=== PATIENT | male | born 1975 | race Caucasian/White ===

== ENCOUNTER 2020-04-11 15:54 | Observation (INO) | payer BC, OTHER ==
[2020-04-11] MEDS ORDERED: morphine CARPU-JECT 4 MG/1 ML DISP.SYRIN IVPUSH ONE ×2 (16:17→18:18)
--- NOTE | 2020-04-11 16:24 | PDOC ---
History of Present Illness - General Chief Complaint: Syncope/Near Syncope Stated Complaint: LFT ARM INJURY Time Seen by Provider: 04/11/20 16:20 History Source: Patient Exam Limitations: No Limitations - History of Present Illness Initial Comments: 04/11/20 16:52 45y previously healthy M presenting w L bicep pain and deformity s/p syncope. This afternoon, pt remembers playing basketball outdoors and running upcourt when losing consciousness. Had 2 similar syncopes within last 2 years, never evaluated by PCP or hospital. Plays basketball 4x/week outdoors. Dad had DE in his 50s. Has small abrasions over forehead and extremities from cat scratches. Denies fever, headache, vision change, chest/ABD pain, SOB, urinary/bowel mvmt changes. Past History - Medical History Allergies/Adverse Reactions: Allergies Allergy/AdvReac Type Severity Reaction Status Date / Time No Known Allergies Allergy Unverified 04/11/20 16:12 Home Medications: Ambulatory Orders Clonazepam [Klonopin] 1 mg PO PRN 04/11/20 COPD: No - Psycho-Social/Smoking History Smoking History: Never smoked Have you smoked in the past 12 months: No Information on smoking cessation initiated: No - Substance Abuse Hx (Audit-C & DAST Scrn) How often the patient has a drink containing alcohol: Never Score: In Men: 4 or > Positive; In Women: 3 or > Positive: 0 Screen Result (Pos requires Nsg. Audit-10AR): Negative In the last yr the pt used illegal drug/Rx for NonMed reason: No Score: Yes response is considered Positive: 0 Screen Result (Positive result requires Nsg. DAST-10): Negative Review of Systems - Review of Systems Constitutional: No: Chills, Fever HEENTM: No: Eye Pain, Nose Congestion Respiratory: No: Cough, SOB at Rest Cardiac (ROS): Yes: Syncope. No: Chest Pain, Palpitations ABD/GI: No: Constipated, Diarrhea, Nausea, Vomiting : No: Burning, Dysuria Musculoskeletal: No: Back Pain, Joint Pain Integumentary: No: Bruising, Flushing Neurological: No: Headache, Seizure Psychiatric: No: Anxiety, Depression Endocrine: No: Intolerance to Cold, Intolerance to Heat Hematologic/Lymphatic: No: Anemia, Blood Clots *Physical Exam - Vital Signs Last Vital Signs Temp Pulse Resp BP Pulse Ox 98.8 F 95 H 17 159/115 H 100 04/11/20 16:09 04/11/20 16:09 04/11/20 16:04/11/20 16:09 04/11/20 16:09 - Physical Exam General Appearance: Yes: Nourished, Appropriately Dressed, Moderate Distress HEENT: positive: EOMI, NBA, Normal Voice, Hearing Grossly Normal, Other (no blood oropharynx/external pinna). negative: Scleral Icterus (R), Scleral Icterus (L) Neck: positive: Supple. negative: Tender, Rigid, Decreased range of motion (full ROM) Respiratory/Chest: positive: Lungs Clear, Normal Breath Sounds. negative: Chest Tender, Respiratory Distress, Crackles, Rales, Rhonchi, Stridor, Wheezing Cardiovascular: positive: Regular Rhythm, Regular Rate, S1, S2. negative: Edema, Murmur Comments:: 2+ radial pulses [place] Gastrointestinal/Abdominal: positive: Normal Bowel Sounds, Flat, Soft. nega tive: Tender, Organomegaly Extremity: positive: Delayed Capillary Refill, Other (L arm - shoulder extension limited d/t pain, ubaldo deformity, intact thumbs up/finger-5th digit/lumbrical strength) Integumentary: positive: Normal Color, Dry, Warm, Other (small abrasions L forehead, extremities). 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 negative: Numbness, Sensory Deficit, Confused, Disoriented ED Treatment Course - LABORATORY CBC & Chemistry Diagram: 04/11/20 16:30 04/11/20 16:30 Medical Decision Making - Medical Decision Making 04/11/20 16:42 EKG - NSR, HR 80, QTc 405, no ST changes Chest/L humerus XR - no fx/dislocation, clear lung peterson, normal cardiac size CT head - no acute bleed/infarct/mass/fx --- 45y previously healthy M presenting w L bicep pain and deformity s/p syncope. Orthostatic vs cardiac syncope. Low concern for ACS (neg trop, NSR EKG) vs vasovagal (no prodrome) Also has L proximal bicep tendon rupture. L arm neurovascular intact. No fx/dislocation on XR, no acute pathology on CTH Given 8 morphine, 1L LR. Placed L arm in sling Consulted ortho Dr Ulloa/Tadeo - place in sling, will evaluate tmrw Admit tele hospitalist for syncope, L proximal biceps tendon rupture No PCP Discharge - Discharge Information Problems reviewed: Yes Clinical Impression/Diagnosis: Syncope Qualifiers: Syncope type: unspecified Qualified Code(s): R55 - Syncope and collapse Rupture of biceps tendon Qualifiers: Encounter type: initial encounter Laterality: left Qualified Code(s): S46.212A - Strain of muscle, fascia and tendon of other parts of biceps, left arm, initial encounter Condition: Improved - Follow up/Referral - Patient Discharge Instructions - Post Discharge Activity
[2020-04-11] MEDS ORDERED: MORPHINE SULFATE 2 MG/ML VIAL ONE ×2 (16:38→22:24)
[2020-04-11] MEDS ORDERED: LACTATED RINGERS SOLUTION 1000 ML INFUS.BAG IV ONE (16:39)
--- NOTE | 2020-04-11 17:10 | PDOC ---
Documentation entered by Kassi Barrera SCRIBE, acting as scribe for Linda Arguello MD. Linda Arguello MD: This documentation has been prepared by the laurenceibeHolly Sydney, SCRIBE, under my direction and personally reviewed by me in its entirety. I confirm that the documentation accurately reflects all work, treatment, procedures, and medical decision making performed by me. Attending Attestation - Resident Resident Name: Nathan Zavala - ED Attending Attestation I have performed the following: I have examined & evaluated the patient, The case was reviewed & discussed with the resident, I agree w/resident's findings & plan, Exceptions are as noted - HPI HPI: 04/11/20 17:09 45 yo M p/w syncopal episode occurred today while running on the basketball court this afternoon. Denies any prodromal symptoms. States he had been playing basketball for about 15 minutes prior to the event. +FH AR in father in his mid 50's. States he has had 2 similar episodes of syncope over the past few years but never sought medical care. Also complaining of L arm pain since the fall. No other injuries or complaints. Patient is R hand dominant. - Physicial Exam PE: General: well appearing Chest: CTAB, good air entry, no wheezes rales or rhonchi CVS: + s1 s2, RRR Extremities: + ubaldo deformity of LUE, sensation intact to light touch, +ttp L shoulder, +radial pulses - Medical Decision Making 04/11/20 17:27 45 yo M here s/p syncopal event, concern for cardiac etiology however lower suspicion for ACS as EKG without ischemic changes. Also with findings concerning for biceps tendon rupture. Plan: -labs -cxr -CT head -xray L humerus -pain control as needed -ortho consult -admit tele obs This clinical encounter is taking place during a federal and state health care emergency attributable to the novel [place]tega Virus pandemic. The [place] of the Department of Health and Human Services has declared, pursuant to the Public Health Service Act 319F-3 (42 U.S.C. 247d-6d), that a covered persons activities related to medical countermeasures against COVID-19 will be immune from liability under Federal and State law. Discharge - Discharge Information Problems reviewed: Yes Clinical Impression/Diagnosis: Syncope Qualifiers: Syncope type: unspecified Qualified Code(s): R55 - Syncope and collapse Rupture of biceps tendon Qualifiers: Encounter type: initial encounter Laterality: left Qualified Code(s): S46.212A - Strain of muscle, fascia and tendon of other parts of biceps, left arm, initial encounter Condition: Improved - Follow up/Referral - Patient Discharge Instructions - Post Discharge Activity
[2020-04-11 17:11] LABS: BASO % 0.7 % (0-2.0); EOS % 1.8 % (0-4.5); HEMATOCRIT 43.8 % (35.4-49); HEMOGLOBIN 14.7 GM/dL (11.7-16.9); LYMPH % 13.8 % (8-40); MCH 29.3 pg (25.7-33.7); MCHC 33.5 g/dl (32.0-35.9); MEAN CELL VOLUME 87.4 fl (80-96); MEAN PLT VOLUME 8.8 fl (7.5-11.1); MONO % 8.6 % (3.8-10.2); NEUT % 75.1 % (42.8-82.8); PLATELET COUNT 246 K/MM3 (134-434); RBC 5.01 M/mm3 (4.00-5.60); WHITE BLOOD COUNT 7.1 K/mm3 (4.0-10.0)
[2020-04-11 17:26] LABS: INR 0.92 (0.83-1.09); PROTHROMBIN TIME (PATIENT) 10.9 SEC (9.7-13.0)
[2020-04-11 17:29] LABS: ACTIVATED PTT 30.2 SECONDS (25.2-36.5)
[2020-04-11 17:46] LABS: ALBUMIN 4.1 g/dl (3.4-5.0); ALK PHOS 63 U/L (45-117); ANION GAP 10 MMOL/L (8-16); BILIRUBIN,TOTAL 0.6 mg/dL (0.2-1); BLOOD UREA NITROGEN 16.8 mg/dL (7-18); CALCIUM 9.6 mg/dL (8.5-10.1); CHLORIDE 107 mmol/L (98-107); CO2 24 mmol/L (21-32); CREATININE 0.8 mg/dL (0.55-1.3); GLUCOSE,RANDOM 92 mg/dL (74-106); MAGNESIUM 2.2 mg/dL (1.8-2.4); N-TERMINAL BNP 38.4 pg/ml (5-125); POTASSIUM 4.2 mmol/L (3.5-5.1); SGOT/AST 15 U/L (15-37); SGPT/ALT 19 U/L (13-61); SODIUM 141 mmol/L (136-145); TOT PROT 7.3 g/dl (6.4-8.2)
[2020-04-11] MEDS ORDERED: morphine SULFATE 4 MG/ML VIAL ONE (18:24)
--- NOTE | 2020-04-11 21:26 | HP ---
<Ade Aldridge - Last Filed: 04/11/20 22:54> CHIEF COMPLAINT: Sudden loss of consciousness and Left arm pain x pain PCP: None HISTORY OF PRESENT ILLNESS: Patient is 45 yo M with a 1 day hx of witnessed sudden LOC and fall with trauma to the left side of his head and left shoulder. This is the 3rd episode in 18months with each lasting 30secs and associated with exercise. No associated sweating, chest pain, SOB, nausea, vomiting, diarrhea, constipation, light headedness, seizure, pre syncope aura, visual or auditory impairment or confusion. No recent hx of insomnia, alcohol, opiod, benzo or other illicit drug use use. Patient ate and was well hydrated before exercise. No hx of cardiac or repiratory illness. There is a significant FHx of syncope 2x in his father. Left shoulder pain is x1 day, started after he fell down during the syncope. It was sudden, is sharp, radiates to the left arm, worsen by movement of affected limb and relieved by resting the affected limb, severity of 9/10. No associated numbness, weakness or pallor. 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 HEAD: Normocephalic with mild tenderness in left temporal side EYES: Pupils equal, round and reactive to light, extraocular movements intact, sclera anicteric, conjunctiva clear. No lid lag. Fundoscopy: No intraretinal hemorrhage seen EARS, NOSE, THROAT: Ears normal, nares patent, oropharynx clear without exudates. Moist mucous membranes. NECK: Normal range of motion, supple without lymphadenopathy, JVD, or masses. LUNGS: vesicular breath sounds heard b/l. No wheezes, and no crackles. No accessory muscle use. HEART: Regular rate and rhythm, normal S1 and S2 without murmur, rub or gallop. Orthostatic vitals=negative: BP on suppine 154/94, sitting 156/91 ABDOMEN: Soft, nontender, not distended, normoactive bowel sounds, no guarding, no rebound, no masses. No hepatomegaly or splenomegaly. MUSCULOSKELETAL: Normal range of motion at all joints. No tenderness. No CVA tenderness. UPPER EXTREMITIES: 2+ pulses, warm, well-perfused. No cyanosis. No peripheral edema, no numbness, no pallor. Motor 1/1 on SALO, sensation 2/2 on SALO. SALO = 5/5 motor and 2/2 sensation LOWER EXTREMITIES: 2+ pulses, warm, well-perfused. No calf tenderness. No peripheral edema. NEUROLOGICAL: Cranial nerves II-XII intact. Normal speech. Motor was 1/1 on SALO and 5/5 on all other limbs, sensation was 2/2 on all limbs PSYCHIATRIC: Cooperative. Good eye contact. Appropriate mood and affect. SKIN: Warm, dry, normal turgor, normal capillary refill. Laboratory Results - last 24 hr 04/11/20 04/11/20 04/11/20 16:30 16:30 16:30 WBC 7.1 RBC 5.01 Hgb 14.7 Hct 43.8 MCV 87.4 MCH 29.3 MCHC 33.5 RDW 14.0 Plt Count 246 MPV 8.8 Absolute Neuts (auto) 5.3 Neutrophils % 75.1 Lymphocytes % 13.8 Monocytes % 8.6 Eosinophils % 1.8 Basophils % 0.7 Nucleated RBC % 1 H PT with INR 10.90 INR 0.92 PTT (Actin FS) 30.2 Sodium 141 Potassium 4.2 Chloride 107 Carbon Dioxide 24 Anion Gap 10 BUN 16.8 Creatinine 0.8 Est GFR (CKD-EPI)AfAm 123.29 Est GFR (CKD-EPI)NonAf 106.38 Random Glucose 92 Calcium 9.6 Magnesium 2.2 Total Bilirubin 0.6 AST 15 ALT 19 Alkaline Phosphatase 63 Creatine Kinase 120 Troponin I < 0.02 B-Natriuretic Peptide 38.4 Total Protein 7.3 Albumin 4.1 ASSESSMENT/PLAN: # Exercise Induced syncope Likely due to inherited conduction abnormality even though current EKG is not supportive Hx of 2 episodes of syncope in his father when walking 3 episodes of exercise induced syncope Admit to telemetry unit for observation Echocardiography R/O valvular EEG then consult neuro TSH Carotid doppler MgSO4, PO4 Morphine for breakthrough pain Ibuprofen # Ruptured Biceps Tendon: Jorge's deformitysz Hx of fall and trauma to SALO ATTENDING PHYSICIAN STATEMENT I saw and evaluated the patient. I reviewed the resident's note and discussed the case with the resident. I agree with the resident's findings and plan as documented. SUBJECTIVE: OBJECTIVE: ASSESSMENT AND PLAN: <Nadya Flores - Last Filed: 04/12/20 00:26> CHIEF COMPLAINT: PCP: HISTORY OF PRESENT ILLNESS: ER course was notable for: (1) (2) (3) Recent Travel: PAST MEDICAL HISTORY: PAST SURGICAL HISTORY: Social History: Smoking: Alcohol: Drugs: Allergies No Known Allergies Allergy (Unverified 04/11/20 16:12) HOME MEDICATIONS: Home Medications Medication Instructions Recorded Clonazepam [Klonopin] 1 mg PO PRN 04/11/20 REVIEW OF SYSTEMS CONSTITUTIONAL: Absent: fever, chills, diaphoresis, generalized weakness, malaise, loss of appetite, weight change HEENT: Absent: rhinorrhea, nasal congestion, throat pain, throat swelling, difficulty swallowing, mouth swelling, ear pain, eye pain, visual changes CARDIOVASCULAR: Absent: chest pain, syncope, palpitations, irregular heart rate, lightheadedness, peripheral edema RESPIRATORY: Absent: cough, shortness of breath, dyspnea with exertion, orthopnea, wheezing, stridor, hemoptysis GASTROINTESTINAL: Absent: abdominal pain, abdominal distension, nausea, vomiting, diarrhea, constipation, melena, hematochezia GENITOURINARY: Absent: dysuria, frequency, urgency, hesitancy, hematuria, flank pain, genital pain MUSCULOSKELETAL: Absent: myalgia, arthralgia, joint swelling, back pain, neck pain SKIN: Absent: rash, itching, pallor HEMATOLOGIC/IMMUNOLOGIC: Absent: easy bleeding, easy bruising, lymphadenopathy, frequent infections ENDOCRINE: Absent: unexplained weight gain, unexplained weight loss, heat intolerance, cold intolerance NEUROLOGIC: Absent: headache, focal weakness or paresthesias, dizziness, unsteady gait, seizure, mental status changes, bladder or bowel incontinence PSYCHIATRIC: Absent: anxiety, depression, suicidal or homicidal ideation, hallucinations. PHYSICAL EXAMINATION Vital Signs - 24 hr 04/11/20 04/11/20 04/11/20 16:09 17:02 19:41 Temperature 98.8 F 98.9 F Pulse Rate 95 H Pulse Rate [ 83 64 Apical] Respiratory 17 18 17 Rate Blood Pressure 159/115 H Blood Pressure 142/89 135/78 [Right Arm] O2 Sat by Pulse 100 100 98 Oximetry (%) GENERAL: Awake, alert, and fully oriented, in no acute distress. HEAD: Normal with no signs of trauma. EYES: Pupils equal, round and reactive to light, extraocular movements intact, sclera anicteric, conjunctiva clear. No lid lag. EARS, NOSE, THROAT: Ears normal, nares patent, oropharynx clear without exudates. Moist mucous membranes. NECK: Normal range of motion, supple without lymphadenopathy, JVD, or masses. LUNGS: Breath sounds equal, clear to auscultation bilaterally. No wheezes, and no crackles. No accessory muscle use. HEART: Regular rate and rhythm, normal S1 and S2 without murmur, rub or gallop. ABDOMEN: Soft, nontender, not distended, normoactive bowel sounds, no guarding, no rebound, no masses. No hepatomegaly or splenomegaly. MUSCULOSKELETAL: Normal range of motion at all joints. No bony deformities or tenderness. No CVA tenderness. UPPER EXTREMITIES: 2+ pulses, warm, well-perfused. No cyanosis. No clubbing. No peripheral edema. LOWER EXTREMITIES: 2+ pulses, warm, well-perfused. No calf tenderness. No peripheral edema. NEUROLOGICAL: Cranial nerves II-XII intact. Normal speech. Normal gait. PSYCHIATRIC: Cooperative. Good eye contact. Appropriate mood and affect. SKIN: Warm, dry, normal turgor, no rashes or lesions noted, normal capillary refill. Laboratory Results - last 24 hr 04/11/20 04/11/20 04/11/20 16:30 16:30 16:30 WBC 7.1 RBC 5.01 Hgb 14.7 Hct 43.8 MCV 87.4 MCH 29.3 MCHC 33.5 RDW 14.0 Plt Count 246 MPV 8.8 Absolute Neuts (auto) 5.3 Neutrophils % 75.1 Lymphocytes % 13.8 Monocytes % 8.6 Eosinophils % 1.8 Basophils % 0.7 Nucleated RBC % 1 H PT with INR 10.90 INR 0.92 PTT (Actin FS) 30.2 Sodium 141 Potassium 4.2 Chloride 107 Carbon Dioxide 24 Anion Gap 10 BUN 16.8 Creatinine 0.8 Est GFR (CKD-EPI)AfAm 123.29 Est GFR (CKD-EPI)NonAf 106.38 Random Glucose 92 Calcium 9.6 Magnesium 2.2 Total Bilirubin 0.6 AST 15 ALT 19 Alkaline Phosphatase 63 Creatine Kinase 120 Troponin I < 0.02 B-Natriuretic Peptide 38.4 Total Protein 7.3 Albumin 4.1 ASSESSMENT/PLAN: Visit type - Emergency Visit Emergency Visit: Yes ED Registration Date: 04/11/20 Care time: The patient presented to the Emergency Department on the above date and was hospitalized for further evaluation of their emergent condition. - New Patient This patient is new to me today: Yes Date on this admission: 04/12/20 - Critical Care Critical Care patient: No ATTENDING PHYSICIAN STATEMENT I saw and evaluated the patient. I reviewed the resident's note and discussed the case with the resident. I agree with the resident's findings and plan as documented. SUBJECTIVE: OBJECTIVE: DOS April 11 2020 ASSESSMENT AND PLAN: 45 year old male with syncope of unclear etiology # Agree with work-up structural cardiac causes vs arrythmia ? Excercise induced - telemetry monitoring - TSH / EEG - neuro consult in AM
[2020-04-11] MEDS ORDERED: MORPHINE SULFATE 2 MG/ML VIAL IVPUSH PRN ×2 (21:31→22:37)
[2020-04-11] MEDS ORDERED: IBUPROFEN 400 MG TABLET (FP) PO PRN (21:31)
[2020-04-11] MEDS ORDERED: ENOXAPARIN NA (PORCINE) 40 MG/0.4 ML DISP.SYRIN SQ ONE (22:24)
[2020-04-11] MEDS: ENOXAPARIN NA (PORCINE) 40 MG/0.4 ML DISP.SYRIN SQ SCH (22:26)
[2020-04-11] MEDS ORDERED: HYDROmorphone HCL 5 MG/5 ML CUP PO PRN (22:36)
[2020-04-11] MEDS ORDERED: ACETAMINOPHEN 325 MG TABLET (FP) PO PRN ×2 (22:38→22:43)
[2020-04-11] MEDS ORDERED: oxyCODONE HCL 5 MG TABLET PO PRN (22:45)
--- NOTE | 2020-04-12 07:41 | PN ---
Physical Exam: Patient Name: LEO WOOD Date of : 71 Patient Status: Inpatient Attending Provider: Sara Bedolla Date: 04/11/20 21:26 Initialization Date: 04/11/20 21:26 CHIEF COMPLAINT: Sudden loss of consciousness and Left arm pain x 1day PCP: None HISTORY OF PRESENT ILLNESS: Patient is 45 yo M with a 1 day hx of witnessed sudden LOC and fall with trauma to the left side of his head and left shoulder. This is the 3rd episode in 18months with each lasting 30secs and associated with exercise. No associated sweating, chest pain, SOB, nausea, vomiting, diarrhea, constipation, light headedness, seizure, pre syncope aura, visual or auditory impairment or confusion. No recent hx of insomnia, alcohol, opiod, benzo or other illicit drug use use. Patient ate and was well hydrated before exercise. No hx of cardiac or repiratory illness. There is a significant FHx of syncope 2x in his father. Left shoulder pain is x1 day, started after he fell down during the syncope. It was sudden, is sharp, radiates to the left arm, worsen by movement of affected limb and relieved by resting the affected limb, severity of 9/10. No associated numbness, weakness or pallor. 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 HEAD: Tenderness on Lt. temporal side of head EYES: Fundoscopy: No intra retinal hemorrhages. PERRL, sclera anicteric, conjunctiva clear. No ptosis. ENT: Ears normal, nares patent, oropharynx clear without blood or mucous membranes. NECK: Trachea midline, full range of motion, supple. LUNGS: Breath sounds equal, clear to auscultation bilaterally, no wheezes, no crackles, no accessory muscle use. HEART: Regular rate and rhythm, S1, S2 without murmur, rub or gallop. ABDOMEN: Soft, nontender, nondistended, normoactive bowel sounds, no guarding, no rebound, no hepatosplenomegaly, no masses. EXTREMITIES: 2+ pulses, warm, well-perfused, no edema. NEUROLOGICAL: Cranial nerves II through XII grossly intact. Normal speech PSYCH: Normal mood, normal affect. SKIN: Warm SALO EXAM: Obvious ubaldo's deformity, sensation 2/2 b/l, motor is 3/5 on affected limb and 5/5 on all other limbs Laboratory Results - last 24 hr 04/11/20 04/11/20 04/11/20 16:30 16:30 16:30 WBC 7.1 RBC 5.01 Hgb 14.7 Hct 43.8 MCV 87.4 MCH 29.3 MCHC 33.5 RDW 14.0 Plt Count 246 MPV 8.8 Absolute Neuts (auto) 5.3 Neutrophils % 75.1 Lymphocytes % 13.8 Monocytes % 8.6 Eosinophils % 1.8 Basophils % 0.7 Nucleated RBC % 1 H PT with INR 10.90 INR 0.92 PTT (Actin FS) 30.2 Sodium 141 Potassium 4.2 Chloride 107 Carbon Dioxide 24 Anion Gap 10 BUN 16.8 Creatinine 0.8 Est GFR (CKD-EPI)AfAm 123.29 Est GFR (CKD-EPI)NonAf 106.38 Random Glucose 92 Calcium 9.6 Magnesium 2.2 Total Bilirubin 0.6 AST 15 ALT 19 Alkaline Phosphatase 63 Creatine Kinase 120 Troponin I < 0.02 B-Natriuretic Peptide 38.4 Total Protein 7.3 Albumin 4.1 Active Medications Generic Name Dose Route Start Last Admin Trade Name Freq PRN Reason Stop Dose Admin Acetaminophen 325 mg 04/11/20 22:38 Tylenol - PO Q6H PRN Fever Or Pain Acetaminophen 325 mg 04/11/20 22:45 Tylenol - PO Q6H PRN PAIN LEVEL 4 - 6 Acetaminophen 650 mg 04/11/20 22:43 Tylenol - PO Q6H PRN PAIN LEVEL 1-5 Enoxaparin Sodium 40 mg 04/11/20 20:30 04/11/20 22:26 Lovenox - SQ 40 mg DAILY AMANDA Administration Morphine Sulfate 1 mg 04/11/20 22:37 Morphine Sulfate IVPUSH Q4H PRN PAIN LEVEL 7 - 10 Oxycodone HCl 5 mg 04/11/20 22:45 Roxicodone - PO Q6H PRN PAIN LEVEL 4 - 6 ASSESSMENT/PLAN: Patient is 45 yo M with a 1 day hx of witnessed sudden LOC and fall with trauma to the left side of his head and left shoulder. Exercise Induced Syncope due to dehydration vs arrhythmia vs congenital QT syndrome Hx of syncope x 2 in 18 months LOC Event always related to exercise FHx of suncope FHx of arrhythmias in his father Admit telemetry NPO for now Echo cardiography and consult senior portfolio analyst Fall, seizure and aspiration precautions to be observed Encourage early ambulation LEFT ARM INJURY: Recent hx of fall Ubaldo's deformity of affected arm Associated pain 9/10 Lt arm sling Morphine 4mg IV QH4 for pain scale 7-10 Acetaminophen 650mg PO Q6H for pain 1-5 and fever Xray of affected limb. Consult orthopedics # DISPOSITION DVT prophylaxis: levonox 40mg SQ daily Visit type - Emergency Visit Emergency Visit: Yes ED Registration Date: 04/11/20 Care time: The patient presented to the Emergency Department on the above date and was hospitalized for further evaluation of their emergent condition. - New Patient This patient is new to me today: Yes Date on this admission: 04/11/20 - Critical Care Critical Care patient: No ATTENDING PHYSICIAN STATEMENT I saw and evaluated the patient. I reviewed the resident's note and discussed the case with the resident. I agree with the resident's findings and plan as documented. SUBJECTIVE: OBJECTIVE: ASSESSMENT AND PLAN:
--- NOTE | 2020-04-12 08:37 | CON.ORTH ---
Consult Reason for Consultation:: left biceps tendon rupture - Smoking History Smoking history: Never smoked Have you smoked in the past 12 months: No Home Medications - Allergies Allergies/Adverse Reactions: Allergies Allergy/AdvReac Type Severity Reaction Status Date / Time No Known Allergies Allergy Unverified 04/11/20 16:12 - Home Medications Home Medications: Ambulatory Orders Clonazepam [Klonopin] 1 mg PO PRN 04/11/20 Physical Exam for Ortho Vital Signs: Vital Signs Temperature 97.8 F 04/12/20 06:09 Pulse Rate 66 04/12/20 06:09 Respiratory Rate 16 04/12/20 06:09 Blood Pressure 141/88 04/12/20 06:09 O2 Sat by Pulse Oximetry (%) 98 04/12/20 06:09 Labs: CBC, BMP 04/11/20 16:30 04/11/20 16:30 INR, PTT INR 0.92 (0.83-1.09) 04/11/20 16:30 - Upper Extremity Elbow: Yes: Left, Deformity, Pain, Swelling, Tenderness, Other (+ ubaldo deformity, + ttp, ff 90, er 20, nvi) Imaging - Results X-ray: Report Reviewed, Image Reviewed Assessment/Plan 45 yo M with a 1 day hx of witnessed sudden LOC and fall with trauma to the left side of his head and left shoulder. This is the 3rd episode in 18months with each lasting 30secs and associated with exercise. No associated sweating, chest pain, SOB, nausea, vomiting, diarrhea, constipation, light headedness, seizure, pre syncope aura, visual or auditory impairment or confusion. No recent hx of insomnia, alcohol, opiod, benzo or other illicit drug use use. Patient ate and was well hydrated before exercise. No hx of cardiac or repiratory illness. There is a significant FHx of syncope 2x in his father. Left shoulder pain is x1 day, started after he fell down during the syncope. It was sudden, is sharp, radiates to the left arm, worsen by movement of affected limb and relieved by re sting the affected limb, severity of 9/10. No associated numbness, weakness or pallor. a/p left proximal biceps tendon rupture Risks and benefits regarding surgical vs conservative treatment were d/w in detail treatment can done as outpt sling for comfort encouraged ROM pain control f/u in the office next week d/w Dr. Piedra
[2020-04-12] MEDS ORDERED: oxyCODONE HCL 5 MG TABLET PO PRN ×2 (09:09→14:05)
[2020-04-12] MEDS ORDERED: KETOROLAC TROMETHAMINE 30 MG/1 ML VIAL IVPUSH PRN (09:10)
[2020-04-12] MEDS ORDERED: ENOXAPARIN NA (PORCINE) 40 MG/0.4 ML DISP.SYRIN SQ ONE (10:00)
[2020-04-12] MEDS ORDERED: LIDOCAINE 5% TOPICAL PATCH ONE (10:00)
[2020-04-12] MEDS: ENOXAPARIN NA (PORCINE) 40 MG/0.4 ML DISP.SYRIN SQ SCH (10:07)
[2020-04-12] MEDS: LIDOCAINE 5% TOPICAL PATCH TP SCH (10:07)
[2020-04-12] MEDS ORDERED: KETOROLAC TROMETHAMINE 30 MG/1 ML VIAL ONE (10:09)
--- NOTE | 2020-04-12 10:55 | CON.NEURO ---
Consult - Smoking History Smoking history: Never smoked Have you smoked in the past 12 months: No Home Medications - Allergies Allergies/Adverse Reactions: Allergies Allergy/AdvReac Type Severity Reaction Status Date / Time No Known Allergies Allergy Unverified 04/11/20 16:12 - Home Medications Home Medications: Ambulatory Orders Clonazepam [Klonopin] 1 mg PO PRN 04/11/20 Physical Exam-Neuro Vital Signs: Vital Signs Temperature 97.8 F 04/12/20 06:09 Pulse Rate 66 04/12/20 06:09 Respiratory Rate 16 04/12/20 06:09 Blood Pressure 141/88 04/12/20 06:09 O2 Sat by Pulse Oximetry (%) 98 04/12/20 06:09 Labs: CBC, BMP 04/11/20 16:30 04/11/20 16:30 INR, PTT INR 0.92 (0.83-1.09) 04/11/20 16:30 Assessment/Plan cc Syncopal episode 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 It was very brief event, lasting few second. There was no seizure like activity, no incontinence, no tongue bite. Cipriano has similar event in psat. He was seen by orthopedic for tendon rupture. Patient has no history of seizure, no head injury, fever or cancer. He do no ttake any medication. 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 Plan: cardiac work up - eeg - no evidence of tia or seizure Thanking you so much Bran Benavidez MD
[2020-04-12] MEDS ORDERED: oxyCODONE HCL 5 MG TABLET ONE (10:56)
--- NOTE | 2020-04-12 12:17 | EKG ---
Test Reason : Blood Pressure : / mmHG Vent. Rate : 080 BPM Atrial Rate : 080 BPM P-R Int : 130 ms QRS Dur : 086 ms QT Int : 352 ms P-R-T Axes : 062 067 043 degrees QTc Int : 405 ms NORMAL SINUS RHYTHM POSSIBLE LEFT ATRIAL ENLARGEMENT BORDERLINE ECG NO PREVIOUS ECGS AVAILABLE Confirmed by JARROD KWONG, VANESSA ([id number]) on 04/12/2020 12:17:51 PM Referred By: Confirmed By:VANESSA GARAY MD
--- NOTE | 2020-04-12 12:23 | PN ---
Physical Exam: SUBJECTIVE: Patient seen and examined in the ER holding area. Pt denies dizziness, SOB, chest pain, c/o L shoulder pain. OBJECTIVE: This is a 45 y.o. male with no past medical history who presented to the ED after a syncopal episode while he was playing basketball. Pt states he was about 15 minutes into the game when he suddenly passed out, he denies prodromal symptoms such as nausea, vomiting, dizziness, lightheadedness. Pt reports he lost conscious for about 30 seconds as per witnesses. Pt states he has had 2 prior episodes of syncope during physical exertion, but did not seek medical care at that time. Pt denies recent illnesses, SOB, dyspnea, chest pain, fever chills, headache, lightheadedness, dizziness. Pt states his father had an NV in his 50s, but no history of sudden cardiac deaths in his family. Pt also reports falling on his left side injuring his left arm. Seen by ortho - most likely left biceps tendon rupture On director zone Vital Signs Period Temp Pulse Resp BP Sys/Gudino Pulse Ox Last 24 Hr 97.5 F-98.9 F 64-95 16-18 135-159/78-115 97-100 GENERAL: The patient is awake, alert, and fully oriented, in no acute distress. HEAD: Normal with no signs of trauma. EYES: PERRL, extraocular movements intact, sclera anicteric, conjunctiva clear. No ptosis. ENT: Ears normal, nares patent, oropharynx clear without exudates, moist mucous membranes. NECK: Trachea midline, full range of motion, supple. LUNGS: Breath sounds equal, clear to auscultation bilaterally, no wheezes, no crackles, no accessory muscle use. HEART: Regular rate and rhythm, S1, S2 without murmur, rub or gallop. ABDOMEN: Soft, nontender, nondistended, normoactive bowel sounds, no guarding, no rebound, no hepatosplenomegaly, no masses. EXTREMITIES: left arm in sling, +left upper extremity tenderness, 2+ pulses, warm, well-perfused, no edema. NEUROLOGICAL: Cranial nerves II through XII grossly intact. Sensation to left upper extremity intact, Normal speech, gait not observed. PSYCH: Normal mood, normal affect. SKIN: Warm, dry, normal turgor, no rashes or lesions noted Laboratory Results - last 24 hr 04/11/20 04/11/20 04/11/20 16:30 16:30 16:30 WBC 7.1 RBC 5.01 Hgb 14.7 Hct 43.8 MCV 87.4 MCH 29.3 MCHC 33.5 RDW 14.0 Plt Count 246 MPV 8.8 Absolute Neuts (auto) 5.3 Neutrophils % 75.1 Lymphocytes % 13.8 Monocytes % 8.6 Eosinophils % 1.8 Basophils % 0.7 Nucleated RBC % 1 H PT with INR 10.90 INR 0.92 PTT (Actin FS) 30.2 Sodium 141 Potassium 4.2 Chloride 107 Carbon Dioxide 24 Anion Gap 10 BUN 16.8 Creatinine 0.8 Est GFR (CKD-EPI)AfAm 123.29 Est GFR (CKD-EPI)NonAf 106.38 Random Glucose 92 Calcium 9.6 Magnesium 2.2 Total Bilirubin 0.6 AST 15 ALT 19 Alkaline Phosphatase 63 Creatine Kinase 120 Troponin I < 0.02 B-Natriuretic Peptide 38.4 Total Protein 7.3 Albumin 4.1 COVID-19 (DICLIA) 04/11/20 16:40 WBC RBC Hgb Hct MCV MCH MCHC RDW Plt Count MPV Absolute Neuts (auto) Neutrophils % Lymphocytes % Monocytes % Eosinophils % Basophils % Nucleated RBC % PT with INR INR PTT (Actin FS) Sodium Potassium Chloride Carbon Dioxide Anion Gap BUN Creatinine Est GFR (CKD-EPI)AfAm Est GFR (CKD-EPI)NonAf Random Glucose Calcium Magnesium Total Bilirubin AST ALT Alkaline Phosphatase Creatine Kinase Troponin I B-Natriuretic Peptide Total Protein Albumin COVID-19 (DILCIA) Not detected Active Medications Generic Name Dose Route Start Last Admin Trade Name Freq PRN Reason Stop Dose Admin Acetaminophen 325 mg 04/11/20 22:45 Tylenol - PO Q6H PRN PAIN LEVEL 4 - 6 Acetaminophen 650 mg 04/11/20 22:43 Tylenol - PO Q6H PRN PAIN LEVEL 1-3 Enoxaparin Sodium 40 mg 04/11/20 20:30 04/12/20 10:07 Lovenox - SQ 40 mg DAILY AMANDA Administration Ketorolac Tromethamine 30 mg 04/12/20 09:10 04/12/20 10:08 Toradol Injection - IVPUSH 04/17/20 09:09 30 mg Q6H PRN Administration PAIN LEVEL 7-10 Lidocaine 1 patch 04/12/20 10:00 04/12/20 10:07 Lidoderm Patch - TP 1 patch DAILY AMANDA Administration Miscellaneous 1 each 04/12/20 22:00 Lidoderm Patch Removal MC DAILY@2200 [facility] Oxycodone HCl 5 mg 04/11/20 22:45 04/12/20 11:02 Roxicodone - PO 5 mg Q6H PRN Administration PAIN LEVEL 4 - 6 ASSESSMENT/PLAN: Problem List - Problems (1) Left upper arm pain Assessment/Plan: oxycodone and toradol PRN lidocaine patch Code(s): M79.622 - PAIN IN LEFT UPPER ARM (2) Rupture of biceps tendon Assessment/Plan: left biceps tendon rupture seen by ortho humerus xray done follow up with left arm MRI f/u outpt for possible surgery vs conservative treatment maintain arm in sling pain control Code(s): S46.219A - STRAIN OF MUSC/FASC/TEND PRT BICEPS, UNSP ARM, INIT Qualifiers: Encounter type: initial encounter Laterality: left Qualified Code(s): S46.212A - Strain of muscle, fascia and tendon of other parts of biceps, left arm, initial encounter (3) Syncope Assessment/Plan: EKG done - nsr trops neg chest xray done - neg carotid doppler u/s done - no stenosis head ct done - neg cardiology following echo done this morning will need stress test - ordered for friday 04/13 seen by neurology - unlikely seizures/TIA Code(s): R55 - SYNCOPE AND COLLAPSE Qualifiers: Syncope type: unspecified Qualified Code(s): R55 - Syncope and collapse (4) Encounter for other specified prophylactic measures Assessment/Plan: VTE prophylaxis - on lovenox 40mg subq daily OOB as tolerated FEN start low sodium diet Code(s): Z29.8 - ENCOUNTER FOR OTHER SPECIFIED PROPHYLACTIC MEASURES Visit type - Emergency Visit Emergency Visit: Yes ED Registration Date: 04/11/20 Care time: The patient presented to the Emergency Department on the above date and was hospitalized for further evaluation of their emergent condition. - New Patient This patient is new to me today: Yes Date on this admission: 04/12/20 - Critical Care Critical Care patient: No - Discharge Referral Referred to [facility] Med P.C.: No
--- NOTE | 2020-04-12 12:25 | CON.CARD ---
Cardiology Consult (text) - Consultation Consultation Note: cc: syncope hpi: 45 m no sig pmhx here with syncope. Yesterday was playing basketball and while running he had loc and fell. Had loc for about 30 seconds and felt fine when awoke. No prodrome sxs, he reports eating and drinking well while playing basketball. No cp sob palps dizzy pnd orthopnea le edema. Had similar episode about 18 mos ago when playing basketball and one other episode while jogging some time before that. Never had a cardio w/u for these episodes. pmh: per hpi psh: none social: no tob fam: dad mi and pci 50s. no scd. ros: per hpi; all others nl meds: Home Medications Medication Instructions Recorded Clonazepam [Klonopin] 1 mg PO PRN 04/11/20 pe: Vital Signs Period Temp Pulse Resp BP Sys/Gudino Pulse Ox Last 24 Hr 97.5 F-98.9 F 64-95 16-18 135-159/78-115 97-100 nad no jvd rrr s1s2 no mrg cta bl nl eff aao3 no le e/c/c abd nt nd pos bs no jaundice diaphoresis pos dp pt no carotid bruits Laboratory Last Values WBC 7.1 K/mm3 (4.0-10.0) 04/11/20 16:30 RBC 5.01 M/mm3 (4.00-5.60) 04/11/20 16:30 Hgb 14.7 GM/dL (11.7-16.9) 04/11/20 16:30 Hct 43.8 % (35.4-49) 04/11/20 16:30 MCV 87.4 fl (80-96) 04/11/20 16:30 MCH 29.3 pg (25.7-33.7) 04/11/20 16:30 MCHC 33.5 g/dl (32.0-35.9) 04/11/20 16:30 RDW 14.0 % (11.9-15.9) 04/11/20 16:30 Plt Count 246 K/MM3 (134-434) 04/11/20 16:30 MPV 8.8 fl (7.5-11.1) 04/11/20 16:30 Absolute Neuts (auto) 5.3 K/mm3 (1.5-8.0) 04/11/20 16:30 Neutrophils % 75.1 % (42.8-82.8) 04/11/20 16:30 Lymphocytes % 13.8 % (8-40) 04/11/20 16:30 Monocytes % 8.6 % (3.8-10.2) 04/11/20 16:30 Eosinophils % 1.8 % (0-4.5) 04/11/20 16:30 Basophils % 0.7 % (0-2.0) 04/11/20 16:30 Nucleated RBC % 1 % (0-0) H 04/11/20 16:30 PT with INR 10.90 SEC (9.7-13.0) 04/11/20 16:30 INR 0.92 (0.83-1.09) 04/11/20 16:30 PTT (Actin FS) 30.2 SECONDS (25.2-36.5) 04/11/20 16:30 Sodium 141 mmol/L (136-145) 04/11/20 16:30 Potassium 4.2 mmol/L (3.5-5.1) 04/11/20 16:30 Chloride 107 mmol/L (98-107) 04/11/20 16:30 Carbon Dioxide 24 mmol/L (21-32) 04/11/20 16:30 Anion Gap 10 MMOL/L (8-16) 04/11/20 16:30 BUN 16.8 mg/dL (7-18) 04/11/20 16:30 Creatinine 0.8 mg/dL (0.55-1.3) 04/11/20 16:30 Est GFR (CKD-EPI)AfAm 123.29 04/11/20 16:30 Est GFR (CKD-EPI)NonAf 106.38 04/11/20 16:30 Random Glucose 92 mg/dL (74-106) 04/11/20 16:30 Calcium 9.6 mg/dL (8.5-10.1) 04/11/20 16:30 Magnesium 2.2 mg/dL (1.8-2.4) 04/11/20 16:30 Total Bilirubin 0.6 mg/dL (0.2-1) 04/11/20 16:30 AST 15 U/L (15-37) 04/11/20 16:30 ALT 19 U/L (13-61) 04/11/20 16:30 Alkaline Phosphatase 63 U/L (45-117) 04/11/20 16:30 Creatine Kinase 120 U/L (26-308) 04/11/20 16:30 Troponin I < 0.02 ng/ml (0.00-0.05) 04/11/20 16:30 B-Natriuretic Peptide 38.4 pg/ml (5-125) 04/11/20 16:30 Total Protein 7.3 g/dl (6.4-8.2) 04/11/20 16:30 Albumin 4.1 g/dl (3.4-5.0) 04/11/20 16:30 COVID-19 (DILCIA) Not detected (Not Detected) 04/11/20 16:40 ecg: wnl tele: sr cxr: clear carotids 04/2020: no sig stenosis a/p: 45 m no sig pmhx here with syncope. syncope: -several episodes years apart while running. No signs chf, acs. ECG wnl. Carotids w/o stenosis. -will check echo to look for cardiomyopathy. cont tele. Will also check stress test for underlying ischemia. -neuro eval in progress as well
[2020-04-12 13:03] VITALS: BMI 24.0
[2020-04-12] MEDS ORDERED: oxyCODONE HCL 5 MG TABLET PO ONE (13:17)
[2020-04-12] MEDS: ACETAMINOPHEN 325 MG TABLET (FP) PO PRN (13:22)
--- NOTE | 2020-04-12 16:55 | ECHO ---
Name: NINALEO NICHOLE Exam:Adult Echocardiogram Study Date: 04/12/2020 09:09 AM Age: 45 yrs Reason For Study: Evaluate LV Function MMode/2D Measurements & Calculations IVSd: 0.95 cm Ao root diam: 3.0 cm LVIDd: 4.1 cm LA dimension: 3.1 cm LVIDs: 2.9 cm LVPWd: 1.5 cm LVPWs: 1.9 cm EDV(Teich): 75.9 ml ESV(Teich): 31.5 ml LVOT diam: 2.1 cm RV S Kristofer: 11.2 cm/sec Doppler Measurements & Calculations MV E max kristofer: 82.4 cm/sec Ao V2 max: 115.1 cm/sec MV A max kristofer: 57.3 cm/sec Ao max P.3 mmHg MV E/A: 1.4 GREGG(V,D): 2.8 cm2 MV dec time: 0.13 sec LV V1 max P.7 mmHg MR max kristofer: 427.8 cm/sec LV V1 max: 95.8 cm/sec MR max P.2 mmHg TR max kristofer: 82.5 cm/sec PA V2 max: 104.5 cm/sec TR max P.7 mmHg PA max P.4 mmHg PI end-d kristofer: 88.2 cm/sec Med Peak E' Kristofer: 7.3 cm/sec Med E/e': 11.2 Lat Peak E' Kristofer: 6.9 cm/sec Lat E/e': 11.9 Procedure A complete two-dimensional transthoracic echocardiogram was performed (2D, M-mode, Doppler and color flow Doppler). Left Ventricle The left ventricular size, thickness and function are normal. Ejection Fraction = 55-60%. The left ve ntricular wall motion is normal. Right Ventricle The right ventricle is normal in size and function. Atria Normal left and right atrial size and function. Mitral Valve There is trace mitral regurgitation. Tricuspid Valve No tricuspid regurgitation. There was insufficient TR detected to calculate RV systolic pressure. Aortic Valve No hemodynamically significant valvular aortic stenosis. No aortic regurgitation is present. Pulmonic Valve There is no pulmonic valvular regurgitation. Great Vessels The aortic root is normal size. Pericardium/Pleura There is no pericardial effusion. Interpretation Summary The left ventricular size, thickness and function are normal The right ventricle is normal in size and function. There is trace mitral regurgitation. MD Keegan Mijares 04/12/2020 04:55 PM
[2020-04-12] MEDS: POLYETHYLENE GLYCOL 3350 119 GM BTL PO SCH (17:35)
[2020-04-12] MEDS: oxyCODONE HCL 5 MG TABLET PO PRN ×2 (18:45→23:59)
[2020-04-12] MEDS: DOCUSATE SODIUM 100 MG CAPSULE (FP) PO SCH (21:39)
[2020-04-13 02:06] LABS: ALBUMIN 3.9 g/dl (3.4-5.0); ALK PHOS 58 U/L (45-117); ANION GAP 7 MMOL/L (8-16); BILIRUBIN,TOTAL 0.9 mg/dL (0.2-1); BLOOD UREA NITROGEN 16.2 mg/dL (7-18); CHLORIDE 106 mmol/L (98-107); CO2 27 mmol/L (21-32); CREATININE 0.8 mg/dL (0.55-1.3); GLUCOSE,RANDOM 80 mg/dL (74-106); MAGNESIUM 2.3 mg/dL (1.8-2.4); PHOSPHOROUS 3.3 mg/dL (2.5-4.9); POTASSIUM 4.5 mmol/L (3.5-5.1); SGOT/AST 17 U/L (15-37); SGPT/ALT 17 U/L (13-61); SODIUM 140 mmol/L (136-145); TOT PROT 6.8 g/dl (6.4-8.2)
[2020-04-13] MEDS: LIDOCAINE PATCH REMOVAL MC SCH ×2 (02:14→22:40)
[2020-04-13] MEDS: DOCUSATE SODIUM 100 MG CAPSULE (FP) PO SCH ×3 (05:59→21:15)
[2020-04-13] MEDS: oxyCODONE HCL 5 MG TABLET PO PRN ×2 (05:59→20:11)
[2020-04-13] MEDS: ACETAMINOPHEN 325 MG TABLET (FP) PO PRN ×3 (06:00→20:12)
--- NOTE | 2020-04-13 06:13 | PN ---
Progress Note, Physician Chief Complaint: denies CP, SOB, palps Tele: NSR - Current Medication List Current Medications: Active Medications Acetaminophen (Tylenol -) 325 mg PO Q6H PRN PRN Reason: PAIN LEVEL 7-10 Last Admin: 04/13/20 06:00 Dose: 325 mg Documented by: Acetaminophen (Tylenol -) 650 mg PO Q6H PRN PRN Reason: PAIN LEVEL 1-3 Last Admin: 04/12/20 18:46 Dose: 650 mg Documented by: Docusate Sodium (Colace -) 100 mg PO TID [facility] Last Admin: 04/13/20 05:59 Dose: 100 mg Documented by: Enoxaparin Sodium (Lovenox -) 40 mg SQ DAILY [facility] Last Admin: 04/12/20 10:07 Dose: 40 mg Documented by: Ketorolac Tromethamine (Toradol Injection -) 30 mg IVPUSH Q6H PRN PRN Reason: PAIN LEVEL 7-10 Stop: 04/17/20 09:09 Last Admin: 04/12/20 10:08 Dose: 30 mg Documented by: Lidocaine (Lidoderm Patch -) 1 patch TP DAILY [facility] Last Admin: 04/12/20 10:07 Dose: 1 patch Documented by: Miscellaneous (Lidoderm Patch Removal) 1 each MC DAILY@2200 [facility] Last Admin: 04/13/20 02:14 Dose: Not Given Documented by: Oxycodone HCl (Roxicodone -) 10 mg PO Q4H PRN PRN Reason: PAIN LEVEL 7 - 10 Last Admin: 04/13/20 05:59 Dose: 10 mg Documented by: Oxycodone HCl (Roxicodone -) 5 mg PO Q4H PRN PRN Reason: PAIN LEVEL 4 - 6 Polyethylene Glycol (Miralax (For Daily Use) -) 17 gm PO DAILY [facility] Last Admin: 04/12/20 17:35 Dose: Not Given Documented by: - Objective Vital Signs: Vital Signs Temperature 97.8 F 04/13/20 02:00 Pulse Rate 121 H 04/13/20 02:00 Respiratory Rate 20 04/13/20 02:00 Blood Pressure 149/98 04/13/20 02:00 O2 Sat by Pulse Oximetry (%) 98 04/12/20 12:28 Constitutional: Yes: No Distress, Calm Eyes: Yes: Conjunctiva Clear Cardiovascular: Yes: Regular Rate and Rhythm Respiratory: Yes: CTA Bilaterally Gastrointestinal: Yes: Soft (nt) Edema: No Neurological: Yes: Alert, Oriented Labs: CBC, BMP 04/11/20 16:30 04/12/20 13:02 INR, PTT INR 0.92 (0.83-1.09) 04/11/20 16:30 - ....Imaging EKG: Image Reviewed Assessment/Plan ecg: wnl tele: sr cxr: clear carotids 04/2020: no sig stenosis a/p: 45 m no sig pmhx here with syncope. syncope: -several episodes years apart while running. No signs chf, acs. ECG wnl. Carotids w/o stenosis. -Normal echo - cont tele - Will also check stress test for underlying ischemia. -neuro input reviewed -If no etiology can be determined, recommend outpt f/u for loop recorder discussion
[2020-04-13 09:14] LABS: BASO % 0.8 % (0-2.0); EOS % 2.6 % (0-4.5); HEMATOCRIT 40.2 % (35.4-49); HEMOGLOBIN 13.6 GM/dL (11.7-16.9); LYMPH % 32.5 % (8-40); MCH 29.2 pg (25.7-33.7); MCHC 33.9 g/dl (32.0-35.9); MEAN CELL VOLUME 86.1 fl (80-96); MEAN PLT VOLUME 8.1 fl (7.5-11.1); MONO % 9.4 % (3.8-10.2); NEUT % 54.7 % (42.8-82.8); PLATELET COUNT 198 K/MM3 (134-434); RBC 4.66 M/mm3 (4.00-5.60); RDW 13.6 % (11.9-15.9); WHITE BLOOD COUNT 4.1 K/mm3 (4.0-10.0)
[2020-04-13 09:52] LABS: ALBUMIN 3.6 g/dl (3.4-5.0); BLOOD UREA NITROGEN 17.3 mg/dL (7-18); CALCIUM 8.7 mg/dL (8.5-10.1); CREATININE 0.9 mg/dL (0.55-1.3); MAGNESIUM 2.3 mg/dL (1.8-2.4); POTASSIUM 3.6 mmol/L (3.5-5.1); TOT PROT 6.3 g/dl (6.4-8.2)
[2020-04-13] MEDS ORDERED: REGADENOSON 0.4 MG/5 ML PRE-FILLED SYRINGE IVPUSH ONE ×2 (10:00→12:47)
[2020-04-13] MEDS ORDERED: clonazePAM 0.5 MG TABLET PO PRN (10:04)
--- NOTE | 2020-04-13 13:38 | PN ---
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 It was very brief event, lasting few second. There was no seizure like activity, no incontinence, no tongue bite. Cipriano has similar event in psat. He was seen by orthopedic for tendon rupture. Patient has no history of seizure, no head injury, fever or cancer. He do no ttake any medication. chart reviewed and no new complain NEUROLOGICAL EXAMINATION Alert oriented x 3, neck is supple , vss EOMI, PUPILS REACTIVE no face asymmetry moving all ext sensation i snormal , ct head i sunremarkable eeg pending Assessment/Plan Syncope, no other medical problem, neuro exam is unremarkable. Plan: cardiac work up - eeg pending - no evidence of tia or seizure Thanking you so much Bran Benavidez MD
[2020-04-13] MEDS: LIDOCAINE 5% TOPICAL PATCH TP SCH (14:47)
[2020-04-13] MEDS: ENOXAPARIN NA (PORCINE) 40 MG/0.4 ML DISP.SYRIN SQ SCH (14:47)
[2020-04-13] MEDS: POLYETHYLENE GLYCOL 3350 119 GM BTL PO SCH (14:48)
[2020-04-13] MEDS ORDERED: MORPHINE SULFATE 2 MG/ML VIAL IVPUSH ONE (15:30)
--- NOTE | 2020-04-13 15:50 | PN ---
Physical Exam: SUBJECTIVE: Patient seen and examined at the bedside after stress test. Pain of left arm severe today. OBJECTIVE: This is a 45 y.o. male with no past medical history who presented to the ED after a syncopal episode while he was playing basketball. Pt states he was about 15 minutes into the game when he suddenly passed out, he denies prodromal symptoms such as nausea, vomiting, dizziness, lightheadedness. Pt reports he lost conscious for about 30 seconds as per witnesses. Pt states he has had 2 prior episodes of syncope during physical exertion, but did not seek medical care at that time. Pt denies recent illnesses, SOB, dyspnea, chest pain, fever chills, headache, lightheadedness, dizziness. Pt states his father had an MD in his 50s, but no history of sudden cardiac deaths in his family. Pt also reports falling on his left side injuring his left arm and found to have a tendon tear. He was seen by orthopedics. Seen by ortho - most likely left biceps tendon rupture stress test 04/13/2020: mild anterior and lateral wall ischemia. borderline transient ischemic dilatation with TID ratio 1.19, EF 51% covid test: negative as of 04/11/2020 Vital Signs Period Temp Pulse Resp BP Sys/Gudino Pulse Ox Last 24 Hr 97.3 F-98.2 F 62-121 20-20 132-149/73-98 97-97 GENERAL: The patient is awake, alert, and fully oriented, in no acute distress, having pain of left arm. HEAD: Normal with no signs of trauma. EYES: PERRL, extraocular movements intact, sclera anicteric, conjunctiva clear. No ptosis. ENT: Ears normal, nares patent, oropharynx clear without exudates, moist mucous membranes. NECK: Trachea midline, full range of motion, supple. LUNGS: Breath sounds equal, clear to auscultation bilaterally, no wheezes, no crackles, no accessory muscle use. HEART: Regular rate and rhythm ABDOMEN: Soft, nontender, nondistended, normoactive bowel sounds, no guarding, no rebound, no hepatosplenomegaly, no masses. EXTREMITIES: left arm in sling, +left upper extremity tenderness, 2+ pulses, warm, well-perfused, no edema. NEUROLOGICAL: Sensation to left upper extremity intact, Normal speech, gait not observed. PSYCH: Normal mood, normal affect. SKIN: Warm, dry, normal turgor, no rashes or lesions noted Laboratory Results - last 24 hr 04/12/20 04/13/20 04/13/20 13:02 08:40 08:40 WBC 4.1 RBC 4.66 Hgb 13.6 Hct 40.2 MCV 86.1 MCH 29.2 MCHC 33.9 RDW 13.6 Plt Count 198 MPV 8.1 Absolute Neuts (auto) 2.3 Neutrophils % 54.7 D Lymphocytes % 32.5 D Monocytes % 9.4 Eosinophils % 2.6 Basophils % 0.8 Nucleated RBC % 0 Sodium 140 140 Potassium 4.5 3.6 Chloride 106 108 H Carbon Dioxide 27 26 Anion Gap 7 L 6 L BUN 16.2 17.3 Creatinine 0.8 0.9 Est GFR (CKD-EPI)AfAm 123.29 117.47 Est GFR (CKD-EPI)NonAf 106.38 101.35 Random Glucose 80 85 Calcium 9.0 8.7 Phosphorus 3.3 Magnesium 2.3 2.3 Total Bilirubin 0.9 1.0 AST 17 11 L ALT 17 15 Alkaline Phosphatase 58 53 Creatine Kinase 68 Troponin I < 0.02 Total Protein 6.8 6.3 L Albumin 3.9 3.6 TSH 0.18 L 0.71 D Free T4 1.10 Active Medications Generic Name Dose Route Start Last Admin Trade Name Freq PRN Reason Stop Dose Admin Acetaminophen 325 mg 04/11/20 22:45 04/13/20 14:49 Tylenol - PO 325 mg Q6H PRN Administration PAIN LEVEL 7-10 Acetaminophen 650 mg 04/11/20 22:43 04/12/20 18:46 Tylenol - PO 650 mg Q6H PRN Administration PAIN LEVEL 1-3 Clonazepam 1 mg 04/13/20 10:04 Klonopin - PO BID PRN ANXIETY Docusate Sodium 100 mg 04/12/20 22:00 04/13/20 14:48 Colace - PO 100 mg TID AMANDA Administration Enoxaparin Sodium 40 mg 04/11/20 20:30 04/13/20 14:47 Lovenox - SQ 40 mg DAILY AMANDA Administration Ketorolac Tromethamine 30 mg 04/12/20 09:10 04/12/20 10:08 Toradol Injection - IVPUSH 04/17/20 09:09 30 mg Q6H PRN Administration PAIN LEVEL 7-10 Lidocaine 1 patch 04/12/20 10:00 04/13/20 14:47 Lidoderm Patch - TP 1 patch DAILY AMANDA Administration Miscellaneous 1 each 04/12/20 22:00 04/13/20 02:14 Lidoderm Patch Removal MC Not Given DAILY@2200 AMANDA Oxycodone HCl 10 mg 04/12/20 14:04 04/13/20 05:59 Roxicodone - PO 10 mg Q4H PRN Administration PAIN LEVEL 7 - 10 Oxycodone HCl 5 mg 04/12/20 14:05 04/13/20 14:48 Roxicodone - PO 5 mg Q4H PRN Administration PAIN LEVEL 4 - 6 Polyethylene Glycol 17 gm 04/12/20 14:15 04/13/20 14:48 Miralax (For Daily Use) - PO Not Given DAILY AMANDA ASSESSMENT/PLAN: Problem List - Problems (1) Abnormal stress test Assessment/Plan: further recommendations per cardiology stress test 04/13/2020: mild anterior and lateral wall ischemia. borderline transient ischemic dilatation with TID ratio 1.19, EF 51% Code(s): R94.39 - ABNORMAL RESULT OF OTHER CARDIOVASCULAR FUNCTION STUDY (2) Left upper arm pain Assessment/Plan: oxycodone and toradol PRN but arm pain severe today after stress test. will give one additional dose of morphine 2mg ivpush to better control the pain. Code(s): M79.622 - PAIN IN LEFT UPPER ARM (3) Rupture of biceps tendon Assessment/Plan: left biceps tendon rupture seen by ortho humerus xray done follow up with left arm MRI f/u outpt for possible surgery vs conservative treatment maintain arm in sling pain control Code(s): S46.219A - STRAIN OF MUSC/FASC/TEND PRT BICEPS, UNSP ARM, INIT Qualifiers: Encounter type: initial encounter Laterality: left Qualified Code(s): S46.212A - Strain of muscle, fascia and tendon of other parts of biceps, left ar m, initial encounter (4) Syncope Assessment/Plan: EKG done - nsr trops neg chest xray done - neg carotid doppler u/s done - no stenosis head ct done - neg cardiology following echo done stress test was abnormal. await cardiology recommendations seen by neurology - unlikely seizures/TIA Code(s): R55 - SYNCOPE AND COLLAPSE Qualifiers: Syncope type: unspecified Qualified Code(s): R55 - Syncope and collapse (5) Encounter for other specified prophylactic measures Assessment/Plan: VTE prophylaxis - on lovenox 40mg subq daily OOB as tolerated FEN start low sodium diet Code(s): Z29.8 - ENCOUNTER FOR OTHER SPECIFIED PROPHYLACTIC MEASURES (6) DVT prophylaxis Assessment/Plan: lovenox 40mg daily Code(s): Z29.9 - ENCOUNTER FOR PROPHYLACTIC MEASURES, UNSPECIFIED Visit type - Emergency Visit Emergency Visit: Yes ED Registration Date: 04/11/20 Care time: The patient presented to the Emergency Department on the above date and was hospitalized for further evaluation of their emergent condition. - New Patient This patient is new to me today: No - Critical Care Critical Care patient: No - Discharge Referral Referred to [facility] Med P.C.: No
[2020-04-13] MEDS ORDERED: MORPHINE SULFATE 2 MG/ML VIAL IVPUSH PRN (17:15)
[2020-04-14] MEDS: oxyCODONE HCL 5 MG TABLET PO PRN ×2 (01:36→08:32)
[2020-04-14] MEDS: DOCUSATE SODIUM 100 MG CAPSULE (FP) PO SCH (05:33)
[2020-04-14] MEDS: ACETAMINOPHEN 325 MG TABLET (FP) PO PRN (08:33)
[2020-04-14 09:30] VITALS: BP 144/79; PULSE 82; TEMP 98.1
[2020-04-14] MEDS: POLYETHYLENE GLYCOL 3350 119 GM BTL PO SCH (09:34)
[2020-04-14] MEDS: LIDOCAINE 5% TOPICAL PATCH TP SCH (09:34)
[2020-04-14] MEDS: ENOXAPARIN NA (PORCINE) 40 MG/0.4 ML DISP.SYRIN SQ SCH (09:34)
--- NOTE | 2020-04-14 10:17 | DS ---
Physical Examination Vital Signs: Vital Signs Temperature 98.1 F 04/14/20 09:28 Pulse Rate 82 04/14/20 09:28 Respiratory Rate 20 04/14/20 09:28 Blood Pressure 144/79 04/14/20 09:28 O2 Sat by Pulse Oximetry (%) 98 04/14/20 09:28 Constitutional: Yes: Well Nourished, No Distress HENT: Yes: Atraumatic, Normocephalic Neck: Yes: Supple, Trachea Midline Cardiovascular: Yes: Regular Rate and Rhythm Respiratory: Yes: Regular, CTA Bilaterally Gastrointestinal: Yes: Normal Bowel Sounds, Soft Extremities: Yes: WNL (arm sling,), Other Edema: No Discharge Summary Problems reviewed: Yes Reason For Visit: SYNCOPE, RUPTURE OF PROXIMAL BICEPS TENDON Current Active Problems Abnormal stress test (Acute) DVT prophylaxis (Acute) Encounter for other specified prophylactic measures (Acute) Left upper arm pain (Acute) Rupture of biceps tendon (Acute) Syncope (Acute) Hospital Course: hpi: 45 m no sig pmhx here with syncope. Yesterday was playing basketball and while running he had loc and fell. Had loc for about 30 seconds and felt fine when awoke. No prodrome sxs, he reports eating and drinking well while playing basketball. No cp sob palps dizzy pnd orthopnea le edema. Had similar episode about 18 mos ago when playing basketball and one other episode while jogging some time before that. Never had a cardio w/u for these episodes. and Nuclear stress with two territories of ischemia indicating poss of multivessel CAD. Discussed with patient. In light of his family hx of CAD and exertional syncope, have recommended diag left heart cath to define coronary anatomy and understand presence/extent CAD to optimize future therapy. Risks/benefits and alternatives were presented to him and he agreed to move forward with cath. Pt to be transferred to [place] for further evaluation including Cath and EP eval Rupture of biceps tendon left biceps tendon rupture seen by ortho humerus xray done follow up with left arm MRI f/u outpt for possible surgery vs conservative treatment maintain arm in sling pain control Plan of Treatment: cardiac cath at the [facility], Condition: Guarded - Instructions Disposition: TRANSFER ACUTE CARE/OTHER HOSP - Home Medications Comprehensive Discharge Medication List: Ambulatory Orders Clonazepam [Klonopin] 1 mg PO PRN 04/11/20 This patient is new to me today: Yes Date on this admission: 04/14/20 Emergency Visit: No Critical Care patient: No - Discharge Referral Referred to [facility] Med P.C.: No
[2020-04-14 10:25] LABS: BASO % 0.5 % (0-2.0); EOS % 2.6 % (0-4.5); HEMATOCRIT 40.9 % (35.4-49); LYMPH % 24.9 % (8-40); MCH 29.5 pg (25.7-33.7); MCHC 34.3 g/dl (32.0-35.9); MEAN CELL VOLUME 86.1 fl (80-96); MEAN PLT VOLUME 7.9 fl (7.5-11.1); MONO % 11.2 % (3.8-10.2); NEUT % 60.8 % (42.8-82.8); PLATELET COUNT 217 K/MM3 (134-434); RBC 4.75 M/mm3 (4.00-5.60); RDW 13.5 % (11.9-15.9); WHITE BLOOD COUNT 4.6 K/mm3 (4.0-10.0)
[2020-04-14 10:56] LABS: ALBUMIN 3.5 g/dl (3.4-5.0); BILIRUBIN,TOTAL 0.8 mg/dL (0.2-1); BLOOD UREA NITROGEN 13.6 mg/dL (7-18); CALCIUM 9.1 mg/dL (8.5-10.1); CREATININE 0.9 mg/dL (0.55-1.3); MAGNESIUM 2.4 mg/dL (1.8-2.4); POTASSIUM 3.8 mmol/L (3.5-5.1); TOT PROT 6.2 g/dl (6.4-8.2)
--- NOTE | 2020-04-14 16:52 | PN ---
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 It was very brief event, lasting few second. There was no seizure like activity, no incontinence, no tongue bite. Cipriano has similar event in psat. He was seen by orthopedic for tendon rupture. Patient is being sent to [facility] for further management for multivessel disease cad. NEUROLOGICAL EXAMINATION Alert oriented x 3, neck is supple , vss EOMI, PUPILS REACTIVE no face asymmetry moving all ext sensation i snormal , ct head i sunremarkable eeg pending Assessment/Plan Syncope, no other medical problem, neuro exam is unremarkable. Plan: transfer to [facility] - eeg pending - no evidence of tia or seizure Thanking you so much Bran Benavidez MD
== END 2020-04-14 11:55 | disposition short-term general hospital (02) ==
LOC: JER 15:54 → INTOOBSV 16:41 → JERBED 16:41 → J4W 04-12 11:25
PROVIDERS: ADMIT Internal Medicine; ATTEND Internal Medicine
PROC: 3E023GC Introduction of Other Therapeutic Substance into Muscle, Percutaneous Approach (ICD-10-PCS; principal; 2020-04-11)
PROC: 3E033GC Introduction of Other Therapeutic Substance into Peripheral Vein, Percutaneous Approach (ICD-10-PCS; 2020-04-11)
PROC: 3E033NZ Introduction of Analgesics, Hypnotics, Sedatives into Peripheral Vein, Percutaneous Approach (ICD-10-PCS; 2020-04-11)
PROC: 3E0337Z Introduction of Electrolytic and Water Balance Substance into Peripheral Vein, Percutaneous Approach (ICD-10-PCS; 2020-04-11)
DX: R55 Syncope and collapse (principal); S46.212A Strain of muscle, fascia and tendon of other parts of biceps, left arm, initial encounter; S09.90XA Unspecified injury of head, initial encounter; W18.39XA Other fall on same level, initial encounter; Y93.67 Activity, basketball; Y92.310 Basketball court as the place of occurrence of the external cause; Z82.49 Family history of ischemic heart disease and other diseases of the circulatory system; Z29.9 Encounter for prophylactic measures, unspecified; Z29.8 Encounter for other specified prophylactic measures; K92.9 Disease of digestive system, unspecified
CPT/HCPCS: 36415; 70450-TC; 71046-TC-FY; 73060-TC-LT-FY; 78452-TC; 80053; 82550; 83735; 83880; 84100; 84439; 84443; 84481; 84484; 85025; 85610; 85730; 93005; 93010; 93017; 93306-TC; 93880-TC; 95816; 99285-25; A9502; G0378; J2785; U0003